=== PATIENT | female | born 1940 | race Caucasian/White ===

== ENCOUNTER 2017-12-17 19:23 | Observation (INO) | payer OTHER ==
[~2017-12-17] VITALS: Ht 152.4 cm; Wt 106.6 kg
[~2017-12-17 19:23] MED LIST: COLACE100 MG PO; FLEXERIL PO; FLONASE 0.05%50 MCG NS; JANUVIA100 MG PO; LASIX 40 MG TAB40 M1 PO; NITROSTAT0.4 MG SL; POTASSIUM20 PO; PRINIVIL10 MG PO; SYNTHROID100 MCG PO; ULTRAM 50MG TAB50 MG PO; ZEMPLAR2 MCG PO
[2017-12-17 19:29] VITALS: BP 146/90
[2017-12-17] MEDS ORDERED: SYNTHROID88 MCG PO (19:38)
[2017-12-17] MEDS ORDERED: LOPRESSOR25 PO (19:38)
[2017-12-17] MEDS ORDERED: IMDUR 60 MG TAB60 M1 PO (19:39)
[2017-12-17] MEDS ORDERED: ALLOPURINOL 10100 M1 PO (19:39)
[2017-12-17] MEDS ORDERED: GABAPENTIN 100100 MG PO (19:39)
[2017-12-17] MEDS ORDERED: CLOBETASOL EMOL15 GM TOP (19:41)
[2017-12-17] MEDS ORDERED: BETAMETHASONE D15 G3 TOP (19:41)
[2017-12-17] MEDS ORDERED: ZANAFLEX4 MG PO (19:41)
[2017-12-17] MEDS ORDERED: ACID REDUCER20 MG PO (19:42)
[2017-12-17] MEDS ORDERED: LEVEMIR SUBQ (19:43)
[2017-12-17] MEDS ORDERED: NOVOLOG100 UNIT/1 SUBQ (19:43)
[2017-12-17 20:10] LABS: ABSOLUTE BASOPHILS 0.1 thou/uL (0.0-0.2); ABSOLUTE EOSINOPHILS 0.3 thou/uL (0.0-0.7); ABSOLUTE LYMPHOCYTES 2.6 thou/uL (0.8-5.3); ABSOLUTE MONOCYTES 0.6 thou/uL (0.0-1.2); ABSOLUTE NEUTROPHILS 4.4 thou/uL (1.6-8.1); HEMATOCRIT 40.5 % (37.0-47.0); HEMOGLOBIN 13.5 gm/dL (12.0-15.0); LYMPHOCYTES 32.2 %; MCH 32.7 pg (26.0-34.0); MCHC 33.3 g/dL (28.0-37.0); MCV 98.2 fL (80.0-100.0); MPV 8.3 fl. (7.2-11.1); NUCLEATED RBCS 0 /100WBC; PLATELET COUNT* 193 thou/uL (150-400); POLYS 54.8 %; RBC 4.12 mil/uL (4.20-5.00); RDW-CV 14.5 % (10.5-14.5); WBC 8.1 thou/uL (4.0-11.0)
[2017-12-17 20:18] LABS: ANION GAP 10 mmol/L (7-16); BUN 23 mg/dL (7-18); CALCIUM 8.9 mg/dL (8.5-10.1); CHLORIDE 102 mmol/L (98-107); CO2 28 mmol/L (21-32); CREATININE 1.3 mg/dL (0.6-1.3); GLUCOSE 141 mg/dL (70-99); POTASSIUM 3.4 mmol/L (3.5-5.1); SODIUM 140 mmol/L (136-145)
[2017-12-17 20:19] LABS: APTT 28.4 Seconds (25.0-31.3); PROTIME 9.9 Seconds (9.20-11.50)
[2017-12-17 20:25] LABS: ALBUMIN 2.8 g/dL (3.4-5.0); ALKALINE PHOSPHATASE 84 U/L (46-116); SGOT 23 U/L (15-37); SGPT 22 U/L (30-65); TOTAL BILIRUBIN 0.4 mg/dL (<0.1-1.0); TOTAL PROTEIN 7.6 g/dL (6.4-8.2); TROPONIN-I LEVEL <0.06 ng/mL (<0.06)
[2017-12-17 21:35] LABS: URINE BILIRUBIN NEGATIVE (Negative); URINE BLOOD 2+ (Negative); URINE COLOR YELLOW; URINE GLUCOSE-RANDOM NEGATIVE (Negative); URINE KETONES NEGATIVE (Negative); URINE LEUKOCYTES-REFLEX 3+ (Negative); URINE NITRITE-REFLEX NEGATIVE (Negative); URINE PROTEIN 1+ (Negative); URINE SPECIFIC GRAVITY <= 1.005 (1.005-1.030); URINE UROBILINOGEN 0.2 E.U./dl (0.2-1.0)
[2017-12-17 21:37] VITALS: BP 151/89
[2017-12-17 21:41] LABS: MUCUS None Seen strn/LPF (None Seen); SQUAMOUS 4-10 Moderate /LPF (0-3)
[2017-12-17 21:42] LABS: CASTS None Seen /LPF (None Seen); URINE WBC-REFLEX >25 Many /HPF (0-5)
[2017-12-17 21:43] LABS: WBC CLUMPS Few (None Seen)
[2017-12-17 21:45] VITALS: BP 149/71
[2017-12-17 21:45] LABS: CRYSTALS None Seen /LPF (None Seen); URINE RBC 3-10 Few /HPF (0-2)
[2017-12-18] VITALS (8 sets, daily range): BP systolic 107–139; BP diastolic 51–79
--- NOTE | 2017-12-18 00:28 | NUR ---
ASSUMED PT CARE AT 1930, PT IS A&OX4, ADMISSION ASSESSMENT COMPLETED CHARTED, ON RA, TRACING NSR ON THE MONITOR, IVF INFUSING PER MAR. PT IS NPO AT THIS TIME PENDING CARDIOLOGY CONSULT. PT IS UP WITH ONE TO THE BSC, BED IN LOW POSITION, CALL LIGHT IN REACH, BED ALARM ON, YELLOW ARM BAND AND SOCKS IN PLACE. HOURLY ROUNDING COMPLETED FOR PT SAFETY.
[2017-12-18] MEDS ORDERED: ASPIR 8181 MG PO (09:46)
--- NOTE | 2017-12-18 10:45 | EKG ---
[place] [address] ELECTROCARDIOGRAM REPORT Name: DIONNA LEDESMA Room: [address] M.R.#: [id number] Admission: 12/17/17 Attend Phys: Fox Saldana Discharge: Date of : 44 Report #: [id number] THIS REPORT FOR: //name// [facility] ED Test Date: 2017-12-17 Test Time: 19:33:29 Pat Name: DIONNA LEDESMA Department: Room: [facility] Gender: F Fryline Attendant: ABISAI Lynn : 1940 Requested By: Karen Richard Order Number: [id number] MD: Harry Jacobs Measurements Intervals [place] Rate: 75 P: 8 MD: 173 QRS: -47 QRSD: 147 T: -10 QT: 435 QTc: 486 Interpretive Statements Sinus rhythm Right bundle branch block LVH with IVCD and secondary repol abnrm left anterior fasicular block Compared to ECG 08/28/2011 08:55:02 Right bundle-branch block now present Left ventricular hypertrophy now present Electronically Signed On 12-18-2017 10:45:04 CDT by Harry Jacobs [email or web address] <ELECTRONICALLY SIGNED> By: Harry Jacobs MD, FACC 12/18/17 1045 32 32 Harry Jacobs MD, FACC /EPI
--- NOTE | 2017-12-18 13:51 | 2DMMODE ---
[facility] [address] [place] [address] 2 D/M-MODE ECHOCARDIOGRAM Name: DIONNA LEDESMA Room: [address] Radha Gastelum#: [id number] Admission: 12/17/17 Attend Phys: Ron Crowe Discharge: Date of : 44 Date of Service: 12/18/17 1351 Report #: [id number] THIS REPORT FOR: //name// APPROVED REPORT Study performed: 12/18/2017 10:21:51 EXAM: Comprehensive 2D, Doppler, and color-flow Echocardiogram Patient Location: In-Patient Room #: 201 Status: routine BSA: 2.01 HR: 65 bpm BP: 123/63 mmHg Rhythm: NSR Other Information Study Quality: Good Indications CAD neck pain 2D Dimensions LVEF(%): 78.40 (>50%) IVSd: 10.36 (7-11mm) LVOT Diam: 19.98 (18-24mm) LVDd: 40.77 mm PWd: 9.39 (7-11mm) Ascending Ao: 29.89 (22-36mm) LVDs: 21.79 (25-40mm) Aortic Root: 32.08 mm Garner's LVEF: 78.40 % Volumes Left Atrial Volume (Systole) LA ESV Index: 13.60 mL/m2 Aortic Valve AoV Peak Catalino.: 1.49 m/s AO Peak Gr.: 8.89 mmHg LVOT Max P.56 mmHg AO Mean Gr.: 4.78 mmHg LVOT Mean P.86 mmHg LVOT Max V: 1.28 m/s AO V2 VTI: 29.12 cm LVOT Mean V: 0.76 m/s DAISHA (VTI): 3.11 cm2 LVOT V1 VTI: 28.91 [place] [address] 2 D/M-MODE ECHOCARDIOGRAM Name: DIONNA LEDESMA Room: [address] Nirav#: [id number] Admission: 12/17/17 Attend Phys: Ron Crowe Discharge: Date of : 44 Date of Service: 12/18/17 1351 Report #: [id number] E/A Ratio: 0.75 MV Decel. Time: 254.85 ms MV E Max Catalino.: 0.64 m/s MV PHT: 73.91 ms MVA (PHT): 2.98 cm2 TDI E/Lateral E': 6.40 E/Medial E': 6.40 Medial E' Catalino.: 0.10 m/s Lateral E' Catalino.: 0.10 m/s Pulmonary Valve PV Peak Catalino.: 0.98 m/s PV Peak Gr.: 3.82 mmHg Tricuspid Valve TR Peak Gr.: 26.94 mmHg RVSP: 31.00 mmHg Left Ventricle The left ventricle is normal size. There is normal LV segmental wall motion. Mild to moderate concentric left ventricular hypertrophy. Left ventricular systolic function is normal. The left ventricular ejection fraction is within the normal range. LVEF is 55-60%. Grade I - abnormal relaxation pattern. Right Ventricle The right ventricle is normal size. The right ventricular systolic function is normal. Atria The left atrium size is normal. The right atrium size is normal. Aortic Valve The aortic valve is normal in structure. No aortic regurgitation is present. There is no aortic valvular stenosis. Mitral Valve The mitral valve is normal in structure. Trace mitral regurgitation. No evidence of mitral valve stenosis. Tricuspid Valve The tricuspid valve is normal in structure. Mild tricuspid regurgitation. The RVSP is 30-35 mmHg. Pulmonic Valve The pulmonary valve is normal in structure. [place] [address] 2 D/M-MODE ECHOCARDIOGRAM Name: DIONNA LEDESMA Fox Room: [address] M.RPrince#: [id number] Admission: 12/17/17 Attend Phys: Ron Crowe Discharge: Date of : 44 Date of Service: 12/18/17 1351 Report #: [id number] valvular regurgitation. Great Vessels The aortic root is normal in size. IVC is normal in size and collapses with >50% inspiration Pericardium There is no pericardial effusion. <Conclusion> LVEF is 55-60%. Grade I - abnormal relaxation pattern. There is normal LV segmental wall motion. There is no aortic valvular stenosis. No aortic regurgitation is present. Mild tricuspid regurgitation. The RVSP is 30-35 mmHg. Mild to moderate concentric left ventricular hypertrophy. <ELECTRONICALLY SIGNED> By: Justus Pagan MD, FACC 12/18/17 1351 1351 135 Justus Pagan MD, FACC /INF
--- NOTE | 2017-12-18 14:31 | NUR ---
ASSUMED PT CARE AT 0700 PT IS ALERT AND ORIENTED X 4 PT IS UP WITH ASSIST X 1 WITH CANE TO BEDSIDE COMMODE PT IS A FALL RISK BED ALARM IS ON, PT IS NPO FOR STRESS TEST PT TAKES BETA BLOCKERS AND NITRATES ASKED PT AND SHE HAS NOT TAKEN EITHER SINCE SUNDAY NIGHT PT IS ABLE TO HAVE STRESS TEST TODAY, PT IS SR ON THE MONITOR PT HAS FLUIDS RUNNING, PT CAN DISCHARGE ONCE CLEARED BY CARDIOLOGY, WILL CONTINUE TO MONITOR
[2017-12-19 03:55] VITALS: BP 132/60
--- NOTE | 2017-12-19 05:24 | NUR ---
ASSUMED CARE OF PT AT 1900 ALERT AND ORIENTED X4 VS AND ASSESSMENT STABLE. NSR ON THE MONITOR. PT DENIED PAIN AND SLEPT THROUGH THE NIGHT. WILL CONTINUE PLAN OF CARE.
[2017-12-19 08:15] VITALS: BP 123/58
[2017-12-19 12:00] VITALS: BP 130/69
--- NOTE | 2017-12-19 12:31 | CARDNUC ---
[place] [address] CARDIAC NUCLEAR IMAGING REPORT Name: DIONNA LEDESMA Room: [address] Nirav#: [id number] Admission: 12/17/17 Attend Phys: Ron Crowe Discharge: Date of : 44 Date of Service: 12/19/17 1231 Report #: [id number] THIS REPORT FOR: //name// APPROVED REPORT Study performed: 12/18/2017 09:55:00 Exam: Nuclear Stress Test Indication: Chest pain, neck pain Patient Location: In-Patient Room #: 201 Stress Tech: Syeda Fontana Stress Nurse: Erin Rodríguez RN Ht: 5 ft 0 in Wt: 238 lbs BSA: 2.01 m2 BMI: 46.47 Medical History Medical History: CAD s/p MD, Diabetes, HTN Medications: metoprolol, asa, furosemide, KCL, isosorbide Allergies: penicillins, metformin Cardiac Risk Factors: Age, DM, FHX of CAD, HTN Previous Cardiac Procedures: Myocardial infarction Exercise History: Sedentary Meds Held (24 hrs): metoprolol, isosorbide Stress Test Details Stress Test: Pharmacologic stress testing performed using 0.4 mg of regadenoson per 5 mL given IV over 10 seconds. Reason for pharmacologic stress test: physical limitation. HR Resting HR: 71 bpm Max Heart Rate (APMHR): 145 bpm Max HR Achieved: 90 bpm Target HR (85% APMHR): 123 bpm % of APMHR: 62 Recovery HR: 83 bpm HR response to stress: Normal HR response to stress BP Resting BP: 120/74 mmHg Max BP: 121/61 mmHg BP response to stress: Normal blood pressure response [place] [address] CARDIAC NUCLEAR IMAGING REPORT Name: DIONNA LEDESMA Room: [address] Radha Gastelum#: [id number] Admission: 12/17/17 Attend Phys: Ron Crowe Discharge: Date of : 44 Date of Service: 12/19/17 1231 Report #: [id number] Resting ECG: Sinus Rhythm rbbb Stress ECG: Sinus Rhythm Recovery ECG: nsr rbbb Clinical Reason for Termination: Completed protocol Stress Symptoms: None Exercise duration: 0 min sec Exercise capacity: 1.0 METs Stress ECG Conclusion nondiagnostic NM EXAM: Myocardial Perfusion REST/STRESS Imaging Protocol: Stress Tc-99m/Rest Tc-99m 2 days Pharmacologic Stress Pharmacologic stress test was performed by injecting Regadenoson 0.4 mg IV push followed by the intravenous injection of 37.0 mCi of Tc-99m Sestamibi. Time of stress injection: 1335 Date: 12/18/2017 Time of stress imagin Date: 12/18/2017 Administration Route: IV Administration Site: Left Arm Heart Rate at time of stress injection: 90 bpm. Gated Stress SPECT was performed 40 minutes after stress injection. The images were gated to evaluate regional wall motion and calculate left ventricular ejection fraction. Study Quality Study: Fair Artifact: Mild Breast artifact Lung Uptake: Normal Study Data At rest, the left ventricular ejection fraction was 75%.. Post stress, the left ventricular ejection was 82%.. SSS: 10 SRS: 7 SDS: 3 TID = 0.65. Perfusion Normal perfusion on both the stress and rest images. Images were reviewed [place] [address] CARDIAC NUCLEAR IMAGING REPORT Name: DIONNA LEDESMA Room: [address]#: [id number] Admission: 12/17/17 Attend Phys: Ron Crowe Discharge: Date of : 44 Date of Service: 12/19/17 1231 Report #: [id number] Wall Motion normal Nuclear Conclusion ECG Findings: non-diagnostic Clinical Findings: negative for ischemia Nuclear Findings: negative for ischemia Exercise Capacity: not assessed Left Ventricular Function: normal Risk Study: low negative perfusion nuclear stress test <Conclusion> nondiagnostic <ELECTRONICALLY SIGNED> By: Justus Pagan MD, [facility] 12/19/17 1231 1231 1231 Justus Pagan MD, FACC /INF
[2018-05-10] MEDS ORDERED: NORCO 5-325 TA1 EACH PO (09:43)
== END 2017-12-19 13:42 | disposition home or self-care (01) ==
LOC: M.ERS 19:23 → M.2W 20:44 → M.TBA-ER 20:44 → M.2W 20:44
PROVIDERS: Physician Assistant; ADMIT Internal Medicine
DX: M54.2 Cervicalgia (principal); E11.9 Type 2 diabetes mellitus without complications; I25.10 Atherosclerotic heart disease of native coronary artery without angina pectoris; M19.90 Unspecified osteoarthritis, unspecified site; I10 Essential (primary) hypertension; E03.9 Hypothyroidism, unspecified; K21.9 Gastro-esophageal reflux disease without esophagitis; I25.2 Old myocardial infarction; E78.4 Other hyperlipidemia; E66.9 Obesity, unspecified; Z79.4 Long term (current) use of insulin; Z90.710 Acquired absence of both cervix and uterus; Z95.5 Presence of coronary angioplasty implant and graft; Z79.899 Other long term (current) drug therapy

== ENCOUNTER 2018-03-23 15:40 | Inpatient (IN) | payer OTHER ==
[~2018-03-23] VITALS: Ht 152.4 cm; Wt 103.0 kg
[~2018-03-23 15:40] MED LIST changes: +ACID REDUCER20 MG PO; +ALLOPURINOL 10100 M1 PO; +ASPIR 8181 MG PO; +BETAMETHASONE D15 G3 TOP; +CLOBETASOL EMOL15 GM TOP; +GABAPENTIN 100100 MG PO; +IMDUR 60 MG TAB60 M1 PO; +LEVEMIR SUBQ; +LOPRESSOR25 PO; +NOVOLOG100 UNIT/1 SUBQ; +SYNTHROID88 MCG PO; +ZANAFLEX4 MG PO
[2018-03-23 15:47] VITALS: BP 130/67
[2018-03-23] MEDS ORDERED: NEURONTIN 300300 M1 PO (16:02)
[2018-03-23] MEDS ORDERED: DEXILANT60 MG PO (16:03)
[2018-03-23 16:15] LABS: ABSOLUTE BASOPHILS 0.1 thou/uL (0.0-0.2); ABSOLUTE EOSINOPHILS 0.3 thou/uL (0.0-0.7); ABSOLUTE MONOCYTES 0.6 thou/uL (0.0-1.2); ABSOLUTE NEUTROPHILS 6.7 thou/uL (1.6-8.1); BASOPHILS 0.8 %; EOSINOPHILS 2.8 %; HEMATOCRIT 42.5 % (37.0-47.0); MCH 32.6 pg (26.0-34.0); MCHC 33.1 g/dL (28.0-37.0); MCV 98.7 fL (80.0-100.0); MONOCYTES 6.4 %; MPV 8.3 fl. (7.2-11.1); NUCLEATED RBCS 0 /100WBC; PLATELET COUNT* 202 thou/uL (150-400); RDW-CV 15.1 % (10.5-14.5); WBC 9.7 thou/uL (4.0-11.0)
[2018-03-23 16:20] LABS: CALCIUM 9.1 mg/dL (8.5-10.1); CREATININE 1.5 mg/dL (0.6-1.3); POTASSIUM 3.2 mmol/L (3.5-5.1)
[2018-03-23 16:24] LABS: ALBUMIN 3.1 g/dL (3.4-5.0); TOTAL BILIRUBIN 0.5 mg/dL (<0.1-1.0)
[2018-03-23 16:39] LABS: URINE BILIRUBIN NEGATIVE (Negative); URINE BLOOD TRACE (Negative); URINE CLARITY CLEAR; URINE COLOR YELLOW; URINE GLUCOSE-RANDOM NEGATIVE (Negative); URINE KETONES NEGATIVE (Negative); URINE NITRITE-REFLEX NEGATIVE (Negative); URINE PROTEIN NEGATIVE (Negative); URINE SPECIFIC GRAVITY <= 1.005 (1.005-1.030); URINE UROBILINOGEN 0.2 E.U./dl (0.2-1.0)
[2018-03-23 16:53] LABS: URINE LEUKOCYTES-REFLEX 2+ (Negative)
[2018-03-23 17:03] LABS: SQUAMOUS 4-10 Moderate /LPF (0-3); URINE WBC-REFLEX >25 Many /HPF (0-5)
[2018-03-23 17:04] LABS: BACTERIA-REFLEX 1-9 Few /HPF (None Seen); CASTS None Seen /LPF (None Seen); CRYSTALS None Seen /LPF (None Seen); MUCUS 0-3 Light strn/LPF (None Seen); URINE RBC 3-10 Few /HPF (0-2)
[2018-03-23 19:00] VITALS: BP 141/78
[2018-03-23 23:00] VITALS: BP 128/68
[2018-03-24 00:30] VITALS: BP 120/61
--- NOTE | 2018-03-24 02:53 | NUR ---
ARRIVED FROM PACU ALERT AND ORIENTED WITH FAMILY AT BEDSIDE. ORIENTED TO ROOM AND BED CONTROLS. ASSESSMENT CHARTED. DENIED NEED FOR PAIN MEDICATIONS. IVF INFUSING WITHOUT DIFFICULTY. O2 ON AT 2L/NC. CALL LIGHT WITHIN REACH. DENIED NEED FOR NAUSEA MEDICATION AT THIS TIME.
[2018-03-24 04:22] LABS: HEMATOCRIT 39.1 % (37.0-47.0); HEMOGLOBIN 12.8 gm/dL (12.0-15.0); MCH 32.4 pg (26.0-34.0); MCHC 32.6 g/dL (28.0-37.0); MCV 99.4 fL (80.0-100.0); MPV 8.6 fl. (7.2-11.1); NUCLEATED RBCS 0 /100WBC; PLATELET COUNT* 160 thou/uL (150-400); RBC 3.94 mil/uL (4.20-5.00); RDW-CV 14.7 % (10.5-14.5); WBC 15.2 thou/uL (4.0-11.0)
[2018-03-24 04:30] VITALS: BP 91/47
[2018-03-24 05:15] LABS: ALBUMIN 2.4 g/dL (3.4-5.0); CALCIUM 8.1 mg/dL (8.5-10.1); CREATININE 1.7 mg/dL (0.6-1.3); MAGNESIUM 1.7 mg/dL (1.8-2.4); POTASSIUM 3.9 mmol/L (3.5-5.1); TOTAL BILIRUBIN 0.6 mg/dL (<0.1-1.0); TOTAL PROTEIN 5.9 g/dL (6.4-8.2)
[2018-03-24 06:00] VITALS: BP 91/47
--- NOTE | 2018-03-24 06:22 | NUR ---
UP WITH 1-2 ASSIST TO BEDSIDE COMMODE. VOIDED X2 WITHOUT DIFFICULTY. URINE CLOUDY YELLOW IN COLOR. DENIED NEED FOR PAIN MEDICATION. ZOFRAN GIVEN X1 AND HELPFUL. ON O2 AT 2L/NC WITH CONTINUEOUS PULSE OX ON AND O2 SATS IN 90'S. HAS IV ANTIBIODICS ORDERED. CALL LIGHT WTIHIN REACH.
[2018-03-24 06:45] LABS: ABSOLUTE LYMPHOCYTES 1.5 thou/uL (0.8-5.3); ABSOLUTE MONOCYTES 0.8 thou/uL (0.0-1.2); ABSOLUTE NEUTROPHILS 12.9 thou/uL (1.6-8.1)
[2018-03-24 08:18] VITALS: BP 104/83
--- NOTE | 2018-03-24 11:46 | OP ---
[facility] [address] [place] [address] OPERATIVE REPORT Name: DIONNA LEDESMA Room: [address] IN [facility]#: [id number] Admission: 03/23/18 Attend Phys: Adrian Herrera, Discharge: Date of : 44 Report #: [id number] THIS REPORT FOR: //name// CC: Jose Herrera DATE OF SERVICE: 03/23/2018 INDICATIONS FOR PROCEDURE: The patient is a 77-year-old female who was admitted to the Emergency Department with right-sided flank pain associated with fever, chills, nausea and vomiting. Evaluation in the Emergency Department revealed evidence of urinary tract infection associated with a large staghorn calculus in the right kidney causing obstruction at the right ureteropelvic junction. After receiving IV antibiotics and discussing all risks and benefits of therapeutic options, she presents for cystoscopy with right retrograde pyelogram and right stent placement to relieve her ureteral obstruction. PREOPERATIVE DIAGNOSES: 1. Right pyelonephritis. 2. Right ureteral obstruction secondary to staghorn calculus. PROCEDURES PERFORMED: Cystoscopy, right retrograde pyelogram, right double-J stent placement. SURGEON: Harry Link MD ANESTHESIA: General. COMPLICATIONS: None. ESTIMATED BLOOD LOSS: None. DESCRIPTION OF PROCEDURE: The patient was consented for the above procedure, given broad-spectrum IV antibiotics preoperatively. She was given general anesthetic, placed in a dorsal lithotomy position. She was prepped and draped in a sterile fashion over the genitalia. The staghorn calculus was easily seen on fluoroscopy. Cystoscopy was performed with 21-South African sheath and the 30-degree lens, which revealed no evidence of stones, ulcerations or tumors within the bladder itself. 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 Ureteral orifices were identified. She did have a grade 2 cystocele. A right retrograde pyelogram was performed with an open-ended 5-South African Pollack catheter, which revealed a normal ureter up to the level of the ureteropelvic junction where this large stone was identified. Contrast did get by the stone and then, she had a dilated renal pelvis above that. Based on that, a 0.35 floppy-tipped guidewire was passed up the right ureter and under fluoroscopic guidance, [place] [address] OPERATIVE REPORT Name: DIONNA LEDESMA Room: [address] IN [facility]#: [id number] Admission: 03/23/18 Attend Phys: Adrian Herrera, Discharge: Date of : 44 Report #: [id number] renal pelvis, a marked efflux of urine drained upon passing the wire. A 4.8 x 26 double-J stent was then passed over the wire with a good curl noted in the renal pelvis and in the bladder after removing the wire. This was confirmed with fluoroscopy and cystoscopy. Next, the bladder was drained, the scope was removed. Uro-Jet was placed per urethra for local anesthesia. The patient was awakened and sent to recovery room where she remained in stable condition. We will leave the stent in place, have her complete her full course of antibiotics and then formal stone therapy will be necessary. This will likely entail a right percutaneous nephrolithotomy due to the size of the stone. <ELECTRONICALLY SIGNED> By: Harry Link MD 03/24/18 1146 04 2035Davitimmy Link MD /nt
--- NOTE | 2018-03-24 11:52 | EKG ---
[place] [address] ELECTROCARDIOGRAM REPORT Name: MONOHECTORDIONNA Room: [address] IN [facility].#: [id number] Admission: 03/23/18 Attend Phys: Adrian Herrera, Discharge: Date of : 44 Report #: [id number] THIS REPORT FOR: //name// [facility] ED Test Date: 2018-03-23 Test Time: 16:10:35 Pat Name: DIONNA LEDESMA Department: Room: Gender: F Purchasing Specialist: [place] : 1940 Requested By: Radha Castro Order Number: [id number] MD: Justus Pagan Measurements Intervals [place] Rate: 60 P: -3 SC: 187 QRS: -36 QRSD: 150 T: -22 QT: 470 QTc: 470 Interpretive Statements Sinus rhythm Right bundle branch block Left ventricular hypertrophy Lateral infarct, recent Compared to ECG 12/17/2017 19:33:29 Myocardial infarct finding now present Intraventricular conduction delay no longer present Early repolarization no longer present Electronically Signed On 03-24-2018 11:52:40 CDT by Justus Pagan [email or web address] <ELECTRONICALLY SIGNED> By: Justus Pagan MD, FACC 03/24/18 1152 1610 1610 Justus Pagan MD, FACC /EPI
[2018-03-24 16:00] VITALS: BP 111/64
--- NOTE | 2018-03-24 17:30 | NUR ---
PATIENT ALERT AND ORIENTED, PLEASANT, WITH PERIODS OF CONFUSION. VITAL SIGNS STABLE ON 2L O2 NASAL CANULA. AFEBRILE. PERRLA. IV PATENT WITH FLUIDS INFUSING. DENIES PAIN AND NAUSEA. SCD'S IN PLACE. FALL PRECAUTIONS IN PLACE WITH BED ALARM ON. HOURLY ROUNDS MAINTAINED THROUGHOUT THE SHIFT. CALL LIGHT WITHIN REACH. NURSING WILL CONTINUE TO MONITOR.
[2018-03-24 20:00] VITALS: BP 135/92
--- NOTE | 2018-03-24 23:32 | CON ---
[address] [address] CONSULTATION Name: DIONNA LEDESMA Room: [address] IN .R.#: [id number] Admission: 03/23/18 Attend Phys: Adrian Herrera, Discharge: Date of : 42 Report #: [id number] THIS REPORT FOR: //name// CC: Jose Herrera DATE OF SERVICE: 03/24/2018 CONSULTATION: Infectious Diseases. HISTORY OF PRESENT ILLNESS: The patient is a 77-year-old white female admitted to the hospital yesterday because of sudden onset of severe right flank pain associated with nausea, vomiting, fevers and chills. Workup showed obstructing staghorn calculus at the right UPJ with hydronephrosis. The patient gave no history of kidney stones in the past. She had no urinary history. She said she did have trauma to the "right colon" at age 11 and thought the pain may be related to that, although she had had pain there for many decades. The patient required urgent surgery to place a stent. Blood cultures x 2 and urine cultures were obtained. Infectious Disease consultation was requested when blood cultures x 2 grew Gram-negative rods. Urine culture unfortunately has been sent to [facility] and there are no results available yet. PAST MEDICAL HISTORY: Significant for diabetes, hypertension, coronary artery disease, fibromyalgia, gastroesophageal reflux, gout. PAST SURGICAL HISTORY: Includes hysterectomy, cholecystectomy, laminectomy. ALLERGIES: THE PATIENT HAS ALLERGIES TO METFORMIN AND PENICILLIN. ON FURTHER QUESTIONING, SHE SAYS PENICILLIN CAUSES SEVERE HIVES. SHE BELIEVES SHE HAD A SIMILAR REACTION FROM [facility]. MEDICATION RECONCILIATION: Current medications include vancomycin and Levaquin, which have been discontinued; betamethasone p.r.n. itching; doxycycline 100 mg twice a day; Lovenox 40 mg subQ daily; fentanyl 25 mcg q. 3h. p.r.n.; fluticasone 0.05% nasal spray daily; Neurontin 300 mg t.i.d.; DuoNeb 3 mL aerosol q.i.d.; isosorbide SA 60 mg daily; Synthroid 0.088 mg daily; magnesium oxide 400 mg b.i.d. p.r.n. hypomagnesemia; metoprolol 25 mg p.o. b.i.d.; morphine 2 mg push q. 3h. p.r.n. pain; ondansetron 4 mg q. 4h. p.r.n.; Protonix 40 mg IV daily; sodium, phosphorus, potassium supplements as needed. The patient has been started on aztreonam 1 g q. 8 hours. FAMILY HISTORY: Noncontributory. SOCIAL HISTORY: The patient is , lives with her . 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 She has no history of tobacco, [place] [address] CONSULTATION Name: DIONNA LEDESMA Room: [address]#: [id number] Admission: 03/23/18 Attend Phys: Adrian Herrera, Discharge: Date of : 44 Report #: [id number] REVIEW OF SYSTEMS: The patient feels much better after placement of the stent. She is no longer complaining of fevers, chills or sweats. She denies headache, sinus congestion, sore throat, trouble swallowing. The patient denies confusion, but her daughter was present, noted that her answers are often quite confused and not accurate, which is different for the patient. The patient denies cough, chest pain, or shortness of breath. She denies angina, syncope, palpitations. She did have nausea and vomiting, which resolved. No diarrhea or constipation. She had right-sided abdominal and flank pain. Extremities, no complaints. The patient was not complaining of frequency, dysuria, bloody urine, cloudy urine, stinky urine, but had the severe flank pain. PHYSICAL EXAMINATION: GENERAL: The patient appears comfortable, not in any distress. VITAL SIGNS: Show maximum measured temperature 99.5, blood pressure was 141/70 in the ER and fell down to 91/47, now is back to 104/83. SKIN: Pale without rash, lesion or exanthem. ENT: Negative. NEUROLOGIC: The patient is oriented x 4. NECK: Supple. HEART: Sounds S1, S2. Regular rate and rhythm. CHEST: Clear to anterior auscultation. ABDOMEN: Obese, soft and does not really demonstrate any tenderness at this time. EXTREMITIES: Unremarkable. GENITOURINARY: The patient does not have a Gomez catheter in. LABORATORY DATA: White count is 15.2, hemoglobin 12.8, hematocrit 39%, platelet 160,000. Electrolytes normal. BUN 20, creatinine 1.7. Liver function tests are normal. Urinalysis showed greater than 25 white cells. Urine culture is pending. Blood cultures x 2 are growing Gram-negative rods. CT scan showed a right-sided staghorn calculus displaced to the ureteropelvic junction with proximal hydronephrosis and bilateral cortical renal atrophy. IMPRESSION: Staghorn calculus with hydronephrosis and Gram-negative bacteremia. The patient should be treated for Gram-negative bacteremia. She has a history of significant penicillin allergy as well as possible cephalosporin allergy. We will use aztreonam for broad spectrum Gram-negative coverage pending results of cultures. We will use a dose of 1 g every 8 hours based on the patient's weight and creatinine. Aztreonam is rather expensive drug and if studies show that the organism is Cipro sensitive, this may be a most cost effective way of treating the patient. Unfortunately, there is too much Cipro resistance in the community now to use this empirically. I would recommend at least 3-5 days of IV antibiotics after the last positive culture before changing to oral antibiotic therapy. I will order a followup blood culture today as [place] [address] CONSULTATION Name: DIONNA LEDESMA Room: [address] ADM IN [facility].#: [id number] Admission: 03/23/18 Attend Phys: Adrian Herrera, Discharge: Date of : 44 Report #: [id number] and BMP tomorrow along with the lactate and procalcitonin. We will discontinue the vancomycin, Levaquin and doxycycline and just use the aztreonam for antibiotics now. I appreciate the opportunity of input in the care of this pleasant family. Dr. Hines will assume followup infectious disease care tomorrow. Thank you for this consultation. <ELECTRONICALLY SIGNED> By: Vinay Henderson MD 03/24/18 2332 1619 1939MD birgit Hayes
[2018-03-25 04:17] LABS: ABSOLUTE BASOPHILS 0.1 thou/uL (0.0-0.2); ABSOLUTE EOSINOPHILS 0.2 thou/uL (0.0-0.7); ABSOLUTE LYMPHOCYTES 1.2 thou/uL (0.8-5.3); ABSOLUTE NEUTROPHILS 8.9 thou/uL (1.6-8.1); BASOPHILS 0.4 %; EOSINOPHILS 1.6 %; LYMPHOCYTES 10.8 %; MCH 32.3 pg (26.0-34.0); MCHC 32.8 g/dL (28.0-37.0); MCV 98.7 fL (80.0-100.0); MONOCYTES 8.6 %; MPV 8.6 fl. (7.2-11.1); NUCLEATED RBCS 0 /100WBC; PLATELET COUNT* 131 thou/uL (150-400); POLYS 78.6 %; RBC 3.34 mil/uL (4.20-5.00); RDW-CV 14.6 % (10.5-14.5); WBC 11.4 thou/uL (4.0-11.0)
[2018-03-25 04:26] LABS: CALCIUM 8.1 mg/dL (8.5-10.1); CREATININE 1.8 mg/dL (0.6-1.3); POTASSIUM 3.6 mmol/L (3.5-5.1)
[2018-03-25 04:29] LABS: HEMOGLOBIN 10.8 gm/dL (12.0-15.0)
--- NOTE | 2018-03-25 04:56 | NUR ---
PATIENT ORIENTED X4 BUT FORGETFUL AND CONFUSED AT TIMES. DENIES PAIN OR NAUSEA. UP WITH ASSIST X1 TO BSC, VOIDING ADQUATELY. VITALS STABLE ON 2L O2 NC. WILL CONTINUE TO MONITOR.
[2018-03-25 08:30] VITALS: BP 119/60
--- NOTE | 2018-03-25 11:38 | NUR ---
Nutrition: pt screen for BMI. Wt down slightly from November at 235 lb. S/p stent w/ kidney stone, UTI. RFT's elevated, albumin low. Meds reviewed. B-178. Hx reviewed. Pt somewhat forgetful and occasionaly confused. Pt noted to be hungry and tolerating po. Appears at low nutrition risk, no recommendaitons at this time.
--- NOTE | 2018-03-25 15:00 | NUR ---
PT.DROWSY. SHE ANSWERED QUESTIONS APPROPRIATELY. SHE SAID SHE LIVES WITH HER ,DAUGHTER AND 2 GRANDSONS. THEY CAN HELP HER NEEDED. SHE DOES NOT AMBULATE. SHE HAS AN ELECTRIC WC. SHE SAID SHE HAS NO CARTILAGE LEFT IN HER KNEES AND CHRONIC BACK/LEG PAIN. SHE CAN TRANSFER TO HER WC BY HERSELF. SHE CAN BATHE AND DRESS HERSELF. HER DRIVES IF THEY GO ANYWHERE. HER DAUGHTER DOES THE COOKINGOR THEY GET TAKE OUT.,CLEANING,LAUNDRY,ETC. SHE HAS NEVER HAD HOME HEALTH. SHE IS AWARE THEY ARE WAITING FOR HER URINE CULTURES TO COME BACK. CM WILL FOLLOW.
[2018-03-25 16:27] VITALS: BP 106/53
--- NOTE | 2018-03-25 17:16 | NUR ---
ASSUMED CARES OF PT AT 0700. PT IN BED, BED IN LOW LOCKED POSITION, CALL BUTTON AND PERSONAL ITEMS IN PT REACH. PT A&O X4, HRRR PER AUSCULTATION, LCTAB, VSS ON RA, PERRLA, PT COOPERATIVE, CALM AND FRIENDLY. PT USES MOTORIZED WC TO AMBULATE, CAN STAND TO PIVOT AND TRANSFER TO COMMODE/TOILET AND BED WITH SBA/INDEPENDENT. FAMILY AT BEDSIDE ALL SHIFT. IV LFA PATENT WITH FLUIDS INFUSING, TOLERATED, NO AVR. SECOND IV IN RIGHT FA SALINE LOCKED / PATENT TO FLUSH. HOURLY ROUNDING AND ACCU CHECKS CONTINUE, NO INSULIN ORDERED. WORKING WITH PT AND OT. SKIN INTACT WITH SCATTERED BRUISING AND SCARS. PT PROGRESSING TOWARDS GOAL. WILL CONTINUE TO MONITOR PT STATUS AND PROGRESS. PT DENIES PAIN THIS SHIFT.
--- NOTE | 2018-03-25 19:02 | NUR ---
PT REMAINS STABLE, TALKATIVE, COOPERATIVE, UP SBA TO TRANSFER TO POWER . PT PROGRESSING TOWARDS GOAL, NO PAIN REPORTED THIS SHIFT. VS REMAIN STABLE, FLUIDS IN LEFT IV INFUSING, TOLERATED, NO AVR. FAMILY AT BEDSIDE THIS SHIFT. HOURLY ROUNDING COMPLETED. REPORT TO CAR BODY MECHANIC FOR CONTINUED CARES. ASSESSMENTS COMPLETED.
[2018-03-25 20:45] VITALS: BP 101/53
[2018-03-26] VITALS: BP 105/60
[2018-03-26 03:54] LABS: HEMATOCRIT 32.8 % (37.0-47.0); HEMOGLOBIN 10.9 gm/dL (12.0-15.0); MCH 32.6 pg (26.0-34.0); MCHC 33.1 g/dL (28.0-37.0); MCV 98.5 fL (80.0-100.0); MPV 9.1 fl. (7.2-11.1); RBC 3.33 mil/uL (4.20-5.00); RDW-CV 14.9 % (10.5-14.5); WBC 8.2 thou/uL (4.0-11.0)
[2018-03-26 04:18] LABS: ALBUMIN 2.1 g/dL (3.4-5.0); CALCIUM 7.8 mg/dL (8.5-10.1); CREATININE 1.8 mg/dL (0.6-1.3); POTASSIUM 3.8 mmol/L (3.5-5.1); TOTAL BILIRUBIN 0.4 mg/dL (<0.1-1.0); TOTAL PROTEIN 5.6 g/dL (6.4-8.2)
[2018-03-26 08:29] VITALS: BP 95/49
--- NOTE | 2018-03-26 08:43 | NUR ---
PATIENT HAS SLEPT WELL THROUGHOUT THE NIGHT WITHOUT ANY ISSUES. VSS ON RA. NO C/O PAIN DURING THE SHIFT. VSS ON RA. PATIENT IS UP WITH SBA TO WHEELCHAIR TO THE BATHROOM. IV IN LEFT FORERAM-NS @ 75ML/HR. IV ABT GIVEN WITHOUT ANY ADVERSE SIDE EFFECTS. IV RIGHT FOREARM-SL. PATIENT INSTRUCTED TO USE CALL LIGHT WHEN NEEDING ASSISTANCE. HOURLY ROUNDS MADE. WILL CONTINUE WITH PLAN OF CARE AND NURSING TO MONITOR.
[2018-03-26 16:08] VITALS: BP 106/46
[2018-03-26 21:35] VITALS: BP 107/57
--- NOTE | 2018-03-27 03:58 | NUR ---
ASSUMED PATIENT CARE AT APPROXIMATELY 0000. REPORT GIVEN FROM NIGHT NURSE. PATIENT SLEEPING QUIETLY. VSS. AGREE WITH ASSESSMENT CHARTED. NURSING TO CONTINUE MONITORING.
[2018-03-27 04:48] LABS: HEMATOCRIT 32.1 % (37.0-47.0); HEMOGLOBIN 10.6 gm/dL (12.0-15.0); MCH 32.8 pg (26.0-34.0); MCV 99.5 fL (80.0-100.0); MPV 9.3 fl. (7.2-11.1); RBC 3.22 mil/uL (4.20-5.00); RDW-CV 15.1 % (10.5-14.5); WBC 6.6 thou/uL (4.0-11.0)
[2018-03-27 04:50] LABS: CALCIUM 8.2 mg/dL (8.5-10.1); CREATININE 1.6 mg/dL (0.6-1.3)
--- NOTE | 2018-03-27 08:02 | NUR ---
PATIENT HAS SLEPT WELL THROUGHOUT THE NIGHT. VSS ON RA. NO C/O PAIN. PATIENT IS UP WITH SBA TO HER W/C AND THE BATHROOM. IV IN LEFT FOREARM-NS @ 75ML/HR. PATIENT INSTRUCTED TO USE CALL LIGHT WHEN NEEDING ASSISTANCE. HOURLY ROUNDS MADE. WILL CONTINUE WITH PLAN OF CARE AND NURSING TO MONITOR.
[2018-03-27 09:00] VITALS: BP 101/42
--- NOTE | 2018-03-27 16:40 | NUR ---
ASSUMED CARE OF PATIENT AFTER MORNING REPORT. ALERT AND ORIENTED X4. ASSESSMENT COMPLETED AND CHARTED. VSS ON ROOM AIR. ANTIBIOTIC INFUSED ORDERED. PATIENT HAS HAD NO COMPLAINTS OF PAIN TIS SHIFT. PATIENT IS TRANSFERRING WELL FROM BED TO WHEELCHAIR TO USE THE BATHROOM. RESTING COMFORTABLY IN BED AT THIS TIME. HOURLY ROUNDS MAINTAINED, CALL LIGHT WITHIN REACH, NURSING WILL CONTINUE TO MONITOR.
[2018-03-27 17:24] VITALS: BP 112/57
[2018-03-27 21:00] VITALS: BP 133/56
[2018-03-27] MEDS ORDERED: DOXYCYCLINE 10100 MG PO (23:51)
[2018-03-28 00:46] VITALS: BP 142/70
[2018-03-28 04:37] LABS: CREATININE 1.4 mg/dL (0.6-1.3); POTASSIUM 4.3 mmol/L (3.5-5.1)
--- NOTE | 2018-03-28 04:49 | NUR ---
PATIENT REMAINS ALERT AND ORIENTED X4 THROUGHOUT SHIFT. VITAL SIGNS STABLE ON ROOM AIR. IV PATENT IN THE LEFT FOREARM SALINE LOCKED. MAINTAINED AND TOLERATED CARB CONTROL DIET. TRANSFERS WITH STANDBY ASSIST TO THE RESTROOM. MEDICATIONS GIVEN PER ORDERS. REPOSITIONING SELF IN BED. RESTING COMFORTABLY THROUGHOUT NIGHT. DENIES PAIN OR NAUSEA. HOURLY ROUNDING COMPLETE. CALL LIGHT WITHIN REACH. NURSING WILL CONTINUE TO MONITOR.
[2018-03-28 09:18] VITALS: BP 110/72; BP 130/67
[2018-03-28 10:50] VITALS: BP 130/67
[2018-03-28 11:23] VITALS: BP 130/67
--- NOTE | 2018-03-28 12:37 | NUR ---
ASSUMED CARE OF PATIENT AFTER MORNING REPORT. ALERT AND ORIENTED X4. ASSESSMENT COMPLETED AND CHARTED. VSS ON ROOM AIR. PATIENT HAS HAD NO COMPLAINTS OF PAIN, NAUSEA OR SOA THIS SHIFT. ANTIBIOTICS ADMINISTERED ORDERED. PATIENT DISCHARGED AT 1230, ALL PERSONAL BELONGINGS, PRESCRIPTION AND DISCHARGE INFORMATION SSENT WITH PATIENT UPON DISCHARGE.
--- NOTE | 2018-03-31 10:45 | CON ---
[address] [address] CONSULTATION Name: DIONNA LEDESMA Room: [address]R.#: [id number] Admission: 03/23/18 Attend Phys: Adrian Herrera, Discharge: 03/28/18 Date of : 44 Report #: [id number] THIS REPORT FOR: //name// CC: Jose Herrera DATE OF SERVICE: 03/25/2018 REQUESTING PHYSICIAN: Adrian Herrera MD. REASON FOR CONSULTATION: Acute kidney injury. HISTORY OF PRESENT ILLNESS: The patient is a 77-year-old female with chronic kidney disease, stage 3 due to diabetic nephropathy and hypertensive nephrosclerosis. She used to follow with Dr. Freeman in our office, but last time was seen by Dr. Freeman was in 2010. At that time, she expressed wishes just to follow for her kidney problems with her primary. So, she presents to the hospital on 03/23/2018 with complaints of right flank pain. She had some chills, nausea, vomiting and fever. She was found to have obstructive staghorn calculi in the right. Urology, Dr. Link performed a cystoscopy with right retrograde pyelogram and placement of right double-J stent. After the procedure, the patient started feeling better; no more pain, fever subsided. Her creatinine, baseline around 1.3 and it is 1.8 today that is why I was consulted. PAST MEDICAL HISTORY: 1. Chronic kidney disease, stage 3. 2. Diabetes mellitus type 2. 3. Hypertension. 4. Obesity. FAMILY HISTORY: Noncontributory. SOCIAL HISTORY: No tobacco or alcohol abuse. MEDICATIONS: Now, she is on albuterol, Protonix, Azactam 1 gram q. 8 hours, gabapentin, Imdur, Flonase, metoprolol and Lovenox. She is getting saw the patient. REVIEW OF SYSTEMS: Positive for symptoms as mentioned earlier. She denies chest pain. Denies shortness of breath. Denies having blood in stool or urine. Denies having changes in visual or hearing acuity. Denies being depressed. PHYSICAL EXAMINATION: GENERAL: She is awake, alert, oriented. VITAL SIGNS: Blood pressure now 119/60, heart rate 82, [place] [address] CONSULTATION Name: DIONNA LEDESMA Room: [address]#: [id number] Admission: 03/23/18 Attend Phys: Adrian Herrera, Discharge: 03/28/18 Date of : 44 Report #: [id number] HEENT: Pupils are round. NECK: Fatty. LUNGS: Clear. CARDIOVASCULAR: Regular rate. ABDOMEN: Soft. EXTREMITIES: Lower extremities, no edema. ASSESSMENT: A 77-year-old female admitted with pyelonephritis on the right side due to right staghorn obstructive calculi, status post placement of a stent by urologist and the patient started on antibiotics and fluids. She feels better. Hopefully, her acute kidney injury will improve fairly soon. I will continue with the fluid, continue with antibiotic. Long-term solution will probably be surgical removal of her staghorn calculi and I would defer that to Dr. Link. Thank you very much. I will follow her closely with you. <ELECTRONICALLY SIGNED> By: Paddy Lora MD 03/31/18 1045 1156 [id number] Lora MD /nt
[2018-05-10] MEDS ORDERED: NORCO 5-325 TA1 EACH PO (09:43)
== END 2018-03-28 12:30 | disposition home or self-care (01) | DRG 871 ==
LOC: M.ERS 15:40 → M.ORTHSURG 17:46 → M.TBA-ER 17:46 → M.ORTHSURG 21:30
PROVIDERS: Internal Medicine; Internal Medicine Infectious Disease; Internal Medicine Nephrology; Nurse Practitioner Family; Urology; ADMIT Family Medicine
PROC: BT1D1ZZ Fluoroscopy of Right Kidney, Ureter and Bladder using Low Osmolar Contrast (ICD-10-PCS; principal; 2018-03-23)
PROC: 0T768DZ Dilation of Right Ureter with Intraluminal Device, Via Natural or Artificial Opening Endoscopic (ICD-10-PCS; principal; 2018-03-23)
DX: A41.9 Sepsis, unspecified organism (principal); J96.91 Respiratory failure, unspecified with hypoxia; G92 Toxic encephalopathy; N17.9 Acute kidney failure, unspecified; N13.6 Pyonephrosis; J98.11 Atelectasis; Z68.41 Body mass index [BMI] 40.0-44.9, adult; N18.3 Chronic kidney disease, stage 3 (moderate); M19.90 Unspecified osteoarthritis, unspecified site; K21.9 Gastro-esophageal reflux disease without esophagitis; G31.89 Other specified degenerative diseases of nervous system; D64.9 Anemia, unspecified; I25.10 Atherosclerotic heart disease of native coronary artery without angina pectoris; M79.7 Fibromyalgia; I12.9 Hypertensive chronic kidney disease with stage 1 through stage 4 chronic kidney disease, or unspecified chronic kidney disease; E11.649 Type 2 diabetes mellitus with hypoglycemia without coma; E11.21 Type 2 diabetes mellitus with diabetic nephropathy; M10.9 Gout, unspecified; E66.01 Morbid (severe) obesity due to excess calories; I25.2 Old myocardial infarction; B96.89 Other specified bacterial agents as the cause of diseases classified elsewhere; E11.22 Type 2 diabetes mellitus with diabetic chronic kidney disease; B96.20 Unspecified Escherichia coli [E. coli] as the cause of diseases classified elsewhere; E87.6 Hypokalemia; Z96.1 Presence of intraocular lens; Z88.6 Allergy status to analgesic agent; Z88.1 Allergy status to other antibiotic agents; Z88.0 Allergy status to penicillin; Z98.42 Cataract extraction status, left eye; Z98.41 Cataract extraction status, right eye; Z90.710 Acquired absence of both cervix and uterus; Z90.49 Acquired absence of other specified parts of digestive tract; Z86.718 Personal history of other venous thrombosis and embolism; Z79.01 Long term (current) use of anticoagulants; Z79.2 Long term (current) use of antibiotics; Z79.4 Long term (current) use of insulin; Z79.899 Other long term (current) drug therapy

== ENCOUNTER → 2018-04-29 | Outpatient (CLI) | payer OTHER ==
[~2018-04-29] MED LIST changes: +DEXILANT60 MG PO; +DOXYCYCLINE 10100 MG PO; +NEURONTIN 300300 M1 PO; +NORCO 5-325 TA1 EACH PO
[2018-04-29 14:32] LABS: HEMATOCRIT 42.4 % (37.0-47.0); HEMOGLOBIN 14.3 gm/dL (12.0-15.0)
[2018-04-29 15:22] LABS: CALCIUM 8.9 mg/dL (8.5-10.1); CREATININE 1.5 mg/dL (0.6-1.3); POTASSIUM 3.4 mmol/L (3.5-5.1)
--- NOTE | 2018-04-29 15:56 | EKG ---
[place] [address] ELECTROCARDIOGRAM REPORT Name: MAX LEDESMAALEKS Braxton Room: [facility]#: [id number] Admission: 04/29/18 Attend Phys: Harry Link MD Discharge: Date of : 44 Report #: [id number] THIS REPORT FOR: //name// [facility] Test Date: 2018-04-29 Test Time: 14:51:30 Pat Name: DIONNA LEDESMA Department: Room: Gender: F Specification Consultant: : 1940 Requested By: Harry Link Order Number: [id number] Reading MD: Harry Jacobs Measurements Intervals [place] Rate: 99 P: 17 [place]: 152 QRS: -63 QRSD: 143 T: -5 QT: 401 QTc: 515 Interpretive Statements Sinus rhythm RBBB and LAFB Probable left ventricular hypertrophy Compared to ECG 03/23/2018 16:10:35 rate increased Electronically Signed On 04-29-2018 15:55:54 CDT by Harry Jacobs [email or web address] <ELECTRONICALLY SIGNED> By: Harry Jacobs MD, [facility] 04/29/18 1555 1451 145 Harry Jacobs MD, FACC /EPI
== END ==
LOC: M.LAB 14:03
PROVIDERS: Urology
DX: Z01.818 Encounter for other preprocedural examination (principal); N20.0 Calculus of kidney; I10 Essential (primary) hypertension; E11.9 Type 2 diabetes mellitus without complications; I25.10 Atherosclerotic heart disease of native coronary artery without angina pectoris; Z88.0 Allergy status to penicillin

== ENCOUNTER → 2018-05-10 | Day surgery (SDC) | payer OTHER ==
[2018-05-16 12:10] LABS: STONE CALCIUM PHOSPHATE 50 % (()); STONE COLOR Tan (()); STONE MAGNESIUM AMMON PHOS 45 % (())
--- NOTE | 2018-06-15 12:08 | OP ---
[facility] [address] [place] [address] OPERATIVE REPORT Name: DIONNA LEDSEMA Room: [facility]#: [id number] Admission: 05/10/18 Attend Phys: Harry Link MD Discharge: Date of : 44 Report #: [id number] THIS REPORT FOR: //name// CC: Jose Link DATE OF SERVICE: 05/10/2018 INDICATIONS: The patient is a 77-year-old female who required a right double-J stent placement last month due to febrile urinary tract infection associated with an obstructing right staghorn calculus. She has recovered nicely from the infection and presents for formal stone management. We discussed treatment options in detail and have elected to proceed with ureteroscopic management with laser lithotripsy due to her overall health issues and a higher surgical risk associated with a percutaneous nephrolithotomy. She understands that because we are managing the stone in this fashion, we will create multiple fragments that will require passage, she may have secondary procedures needed and elected to proceed with this procedure due to the safety associated with this procedure. PREOPERATIVE DIAGNOSIS: Right staghorn calculus. POSTOPERATIVE DIAGNOSIS: Right staghorn calculus. PROCEDURE: Cystoscopy, right ureteroscopic stone extraction with holmium laser lithotripsy with a right double-J stent placement. SURGEON: Harry Link MD. ANESTHESIA: General. COMPLICATIONS: None. ESTIMATED BLOOD LOSS: Minimal. DESCRIPTION OF PROCEDURE: The patient was consented for the above procedure. She was given broad spectrum IV antibiotics. She was given a general anesthetic, placed in a dorsal lithotomy position and prepped and draped in the usual sterile fashion over the genitalia. Cystoscopy was performed with a 21-Yakut sheath and 30-degree lens, which revealed the right double-J stent protruding from the right ureteral orifice. This was grasped with a grasping forceps and brought out to the urethral meatus. Next, a 0.035 floppy-tipped guidewire was passed up the stent and up into the right renal collecting system under fluoroscopic guidance without difficulty. The stent was removed leaving the guidewire in place. Next, an 08/13, 28 cm ureteral access sheath was passed over the wire up the ureter under fluoroscopic guidance without difficulty. Once the sheath was in place, the wire and trocar were removed[place] [address] OPERATIVE REPORT Name: DIONNA LEDESMA Room: [facility]#: [id number] Admission: 05/10/18 Attend Phys: Harry Link MD Discharge: Date of : 44 Report #: [id number] flexible ureteroscope was used to perform ureteroscopy through the sheath and up into the collecting system without difficulty. This large stone was identified, it was completely filling the renal pelvis. A 200 micron holmium laser was used to fragment the stone. This stone was very soft and fragmented readily into manageable-size pieces; however, due to the amount of debris that was created, it was always difficult to tell whether any large pieces remained behind. A thorough fragmentation was performed trying to identify any sizable fragments that could be broken up and I felt like that I was able to break up the entire stone, but as mentioned, visualization was fairly poor due to the amount of debris. This was irrigated free several times, but still visualization was difficult. After an exhaustive period of time fragmenting the stone, I elected to halt the procedure. The ureteroscope was removed. The guidewire was passed back up the sheath under fluoroscopic guidance. The sheath was removed and then a 4.8 x 26 double-J stent was passed over the wire with good curl noted in the renal pelvis and in the bladder after removing the wire. This was confirmed with fluoroscopy and cystoscopy. The bladder was drained, scope was removed. Uro-Jet was placed per urethra for local anesthesia. She was transferred to the recovery room in stable condition. We will leave the stent in for a few weeks. Repeat some imaging to see what type of stone fragments is left behind to determine if further procedures are needed. <ELECTRONICALLY SIGNED> By: Harry Lnik MD 06/15/18 1208 0919 [id number] Link MD /nt
== END | disposition home or self-care (01) ==
LOC: M.SUR 05:56
PROVIDERS: Urology
DX: N20.0 Calculus of kidney (principal); N39.0 Urinary tract infection, site not specified; I12.9 Hypertensive chronic kidney disease with stage 1 through stage 4 chronic kidney disease, or unspecified chronic kidney disease; E11.22 Type 2 diabetes mellitus with diabetic chronic kidney disease; N18.2 Chronic kidney disease, stage 2 (mild); E11.40 Type 2 diabetes mellitus with diabetic neuropathy, unspecified; I25.10 Atherosclerotic heart disease of native coronary artery without angina pectoris; I25.2 Old myocardial infarction; E03.9 Hypothyroidism, unspecified; M79.7 Fibromyalgia; M10.9 Gout, unspecified; E66.09 Other obesity due to excess calories; Z90.710 Acquired absence of both cervix and uterus; Z88.6 Allergy status to analgesic agent; Z86.718 Personal history of other venous thrombosis and embolism; Z88.8 Allergy status to other drugs, medicaments and biological substances; Z79.899 Other long term (current) drug therapy; Z88.0 Allergy status to penicillin; Z98.890 Other specified postprocedural states; Z79.01 Long term (current) use of anticoagulants; Z79.4 Long term (current) use of insulin

== ENCOUNTER → 2019-07-22 | Outpatient (CLI) | payer OTHER | LOC: M.RAD 16:00 | DX: J98.11 Atelectasis (principal); I25.2 Old myocardial infarction; I25.10 Atherosclerotic heart disease of native coronary artery without angina pectoris; I11.9 Hypertensive heart disease without heart failure; Z98.61 Coronary angioplasty status; Z88.8 Allergy status to other drugs, medicaments and biological substances ==

== ENCOUNTER 2019-10-29 10:23 | Inpatient (IN) | payer MEDICARE ==
[~2019-10-29] VITALS: Ht 152.4 cm; Wt 90.7 kg
[2019-10-29 10:24] VITALS: BP 139/58
[2019-10-29 10:58] LABS: BE -6.3 mmol/L (-2 to +3); PCO2 VENOUS 25.9 mmHg (41.0-51.0)
[2019-10-29 10:59] LABS: HEMATOCRIT 35.1 % (37.0-47.0); HEMOGLOBIN 12.1 gm/dL (12.0-15.0); MCH 33.9 pg (26.0-34.0); MCHC 34.4 g/dL (28.0-37.0); MCV 98.6 fL (80.0-100.0); NUCLEATED RBCS 0 /100WBC; PLATELET COUNT* 113 thou/uL (150-400); RBC 3.56 mil/uL (4.20-5.00); RDW-CV 14.6 % (10.5-14.5); WBC 10.8 thou/uL (4.0-11.0)
[2019-10-29 11:07] LABS: INFLUENZA A ANTIGEN Negative (Negative); INFLUENZA B ANTIGEN Negative (Negative)
[2019-10-29 11:20] LABS: CALCIUM 7.9 mg/dL (8.5-10.1); CREATININE 2.4 mg/dL (0.6-1.3); POTASSIUM 3.3 mmol/L (3.5-5.1)
[2019-10-29 11:25] LABS: ALBUMIN 2.6 g/dL (3.4-5.0); TOTAL BILIRUBIN 2.3 mg/dL (<0.1-1.0); TOTAL PROTEIN 6.5 g/dL (6.4-8.2)
[2019-10-29 11:26] LABS: URINE BLOOD 1+ (Negative); URINE CLARITY CLEAR; URINE COLOR YELLOW; URINE GLUCOSE-RANDOM NEGATIVE (Negative); URINE KETONES NEGATIVE (Negative); URINE NITRITE-REFLEX NEGATIVE (Negative); URINE PROTEIN 1+ (Negative)
[2019-10-29 11:27] LABS: ICTOTEST (BILI CONFIRMATORY) Negative (Negative); URINE BILIRUBIN 1+ (Negative); URINE LEUKOCYTES-REFLEX 3+ (Negative)
[2019-10-29 11:32] LABS: BACTERIA-REFLEX >30 Many /HPF (None Seen); COARSE GRANULAR CASTS 4-10 Moderate /LPF (None Seen); CRYSTALS None Seen /LPF (None Seen); HYALINE CASTS 4-10 Moderate /LPF (None Seen); MUCUS 0-3 Light strn/LPF (None Seen); SQUAMOUS 4-10 Moderate /LPF (0-3); URINE WBC-REFLEX >25 Many /HPF (0-5)
[2019-10-29 11:34] LABS: ABSOLUTE LYMPHOCYTES 0.1 thou/uL (0.8-5.3); ABSOLUTE MONOCYTES 0.3 thou/uL (0.0-1.2); ABSOLUTE NEUTROPHILS 10.4 thou/uL (1.6-8.1); PLATELET ESTIMATE ADEQUATE
[2019-10-29 12:53] VITALS: BP 98/53
[2019-10-29] MEDS ORDERED: ISOSORBIDE PO (13:59)
[2019-10-29] MEDS ORDERED: FUROSEMIDE 40 M40 MG PO (14:01)
[2019-10-29] MEDS ORDERED: HUMALOG100 UNIT/1 SUBQ (14:02)
[2019-10-29] MEDS ORDERED: LEVEMIR100 UNIT/1 SUBQ (14:02)
[2019-10-29] MEDS ORDERED: VITAMIN D400 UNIT PO (14:04)
[2019-10-29 14:30] VITALS: BP 91/43
--- NOTE | 2019-10-29 14:32 | EKG ---
[place] [address] ELECTROCARDIOGRAM REPORT Name: DIONNA LEDESMA Room: [address] ADM IN .R.#: [id number] Admission: 10/29/19 Attend Phys: Fox Saldana Discharge: Date of : 44 Report #: [id number] THIS REPORT FOR: //name// [facility] ED Test Date: 2019-10-29 Test Time: 10:35:19 Pat Name: DIONNA LEDESMA Department: Room: [facility] Gender: F Medical Assistant Float: : 1940 Requested By: Maximus Cedeno Order Number: [id number] MD: Harry Jacobs Measurements Intervals [place] Rate: 109 P: 11 [place]: 149 QRS: -75 QRSD: 145 T: 24 QT: 359 QTc: 484 Interpretive Statements Sinus tachycardia RBBB and LAFB Compared to ECG 04/29/2018 14:51:30 Sinus rhythm no longer present Electronically Signed On 10-29-2019 14:31:58 GLOBAL COORDINATOR by Harry Jacobs [email or web address] <ELECTRONICALLY SIGNED> By: Harry Jacobs MD, FAC 10/29/19 1431 1035 1035 Harry Jacobs MD, [facility] /EPI
[2019-10-29 16:00] VITALS: BP 92/55
[2019-10-29 20:20] VITALS: BP 93/52
[2019-10-29 23:13] LABS: ACETAMINOPHEN 3 ug/mL (10-30); DIRECT BILIRUBIN 0.7 mg/dL (<0.1-0.3); SALICYLATE < 2.8 mg/dL (2.8-20.0)
--- NOTE | 2019-10-30 00:45 | NUR ---
MESSAGE SENT TO DR KNIGHT THROUGH YOU [employer] REGARDING ELEVATED DDIMER. MARILY RAMOS SPOKE TO DR KNIGHT 0045 AND HE STATES TO WATCH PT, NO NEW ORDERS AT THIS TIME.
[2019-10-30 03:15] VITALS: BP 129/49
[2019-10-30 04:05] LABS: HEMATOCRIT 33.6 % (37.0-47.0); HEMOGLOBIN 11.5 gm/dL (12.0-15.0); MCH 33.7 pg (26.0-34.0); MCHC 34.2 g/dL (28.0-37.0); MCV 98.7 fL (80.0-100.0); MPV 9.8 fl. (7.2-11.1); RBC 3.41 mil/uL (4.20-5.00); RDW-CV 14.5 % (10.5-14.5); WBC 11.6 thou/uL (4.0-11.0)
[2019-10-30 04:41] LABS: ALBUMIN 2.4 g/dL (3.4-5.0); CALCIUM 7.9 mg/dL (8.5-10.1); CREATININE 2.7 mg/dL (0.6-1.3); POTASSIUM 4.1 mmol/L (3.5-5.1); TOTAL PROTEIN 6.3 g/dL (6.4-8.2)
--- NOTE | 2019-10-30 06:18 | NUR ---
PT SLEPT FAIRLY WELL OVERNIGHT. UP WITH SBA TO BSC TO VOID. HAS BEEN NPO SINCE MIDNIGHT FOR ABD CT TODAY. HS ACCUCHECK, INSULIN GIVEN WITH SNACK ORDERED. RAC SL IV. LABS DRAWN, DR NOTIFIED OF ELEVATED DDIMER. PT CANNOT TOLERATE BP CUFF ON UPPER ARMS, MORE ACCURATE READING OBTAINED ON RLE. [facility] IN PT BOX FOR USE. TEMP MAX 99.6 OVERNIGHT. ABLE TO USE CALL LITE AND MAKE NEEDS KNOWN.
[2019-10-30 08:17] VITALS: BP 111/40
--- NOTE | 2019-10-30 12:39 | 2DMMODE ---
[place] [address] 2 D/M-MODE ECHOCARDIOGRAM Name: DIONNA LEDESMA Room: [address] ADM IN .R.#: [id number] Admission: 10/29/19 Attend Phys: Ron Crowe Discharge: Date of : 44 Date of Service: 10/30/19 1238 Report #: [id number] THIS REPORT FOR: cc: Jose Curtis MD, Bruce D. MD Liston, Michael J. MD [facility] ~ THIS REPORT FOR: //name// APPROVED REPORT Study performed: 10/30/2019 09:03:35 EXAM: Comprehensive 2D, Doppler, and color-flow Echocardiogram Patient Location: In-Patient Room #: [facility] BSA: 1.87 HR: 73 bpm BP: 129/49 mmHg Other Information Study Quality: Good Indications Dyspnea 2D Dimensions IVSd: 9.90 (7-11mm) LVOT Diam: 20.30 (18-24mm) LVDd: 46.52 mm PWd: 10.01 (7-11mm) Ascending Ao: 29.15 (22-36mm) LVDs: 29.55 (25-40mm) Aortic Root: 23.45 mm Volumes Left Atrial Volume (Systole) LA ESV Index: 13.10 mL/m2 Aortic Valve AoV Peak Catalino.: 1.63 m/s AO Peak Gr.: 10.62 mmHg LVOT Max P.58 mmHg AO Mean Gr.: 5.93 mmHg LVOT Mean P.91 mmHg LVOT Max V: 1.28 m/s AO V2 VTI: 31.66 cm LVOT Mean V: 0.78 m/s DAISHA (VTI): 2.69 cm2 LVOT V1 VTI: 26.30 [place] [address] 2 D/M-MODE ECHOCARDIOGRAM Name: CALLIEDIONNA CUMMINGS Room: [address] ADM IN .R.#: [id number] Admission: 10/29/19 Attend Phys: Ron Crowe Discharge: Date of : 44 Date of Service: 10/30/19 1238 Report #: [id number] Mitral Valve E/A Ratio: 0.89 MV Decel. Time: 176.12 ms MV E Max Catalino.: 0.75 m/s MV PHT: 51.07 ms MVA (PHT): 4.31 cm2 TDI E/Lateral E': 6.25 E/Medial E': 6.82 Medial E' Catalino.: 0.11 m/s Lateral E' Catalino.: 0.12 m/s Pulmonary Valve PV Peak Catalino.: 1.08 m/s PV Peak Gr.: 4.70 mmHg Tricuspid Valve RAP Estimate: 5.00 mmHg TR Peak Gr.: 32.16 mmHg RVSP: 37.16 mmHg PA Pressure: 37.16 mmHg Left Ventricle The left ventricle is normal size. There is normal LV segmental wall motion. There is normal left ventricular wall thickness. Left ventricular systolic function is normal. LVEF is 60-65%. Grade I - abnormal relaxation pattern. Right Ventricle The right ventricle is normal size. The right ventricular systolic function is normal. Atria The left atrium size is normal. The right atrium size is normal. Aortic Valve The aortic valve is normal in structure. No aortic regurgitation is present. There is no aortic valvular stenosis. Mitral Valve The mitral valve is normal in structure. Mild mitral regurgitation. No evidence of mitral valve stenosis. Tricuspid Valve The tricuspid valve is normal in structure. Mild tricuspid regurgitation. The RVSP is 40-[place] [address] 2 D/M-MODE ECHOCARDIOGRAM Name: DIONNA LEDESMA Room: [address] IN [facility]#: [id number] Admission: 10/29/19 Attend Phys: Ron Crowe Discharge: Date of : 44 Date of Service: 10/30/19 1238 Report #: [id number] Pulmonic Valve The pulmonary valve is normal in structure. Trace pulmonic regurgitation. Great Vessels The aortic root is normal in size. IVC is normal in size and collapses >50% with inspiration. Pericardium There is no pericardial effusion. <Conclusion> The left ventricle is normal size. There is normal left ventricular wall thickness. Left ventricular systolic function is normal. LVEF is 60-65%. Grade I - abnormal relaxation pattern. Mild mitral regurgitation. Mild tricuspid regurgitation. The RVSP is 40-45 mmHg. <ELECTRONICALLY SIGNED> By: Miguelito De La Paz MD, FACC 10/30/19 1238 1238 1238 Miguelito De La Paz MD, FACC /INF
[2019-10-30 15:33] LABS: APTT 36.6 Seconds (25.0-31.3); INR 1.1; PROTIME 11.3 Seconds (9.20-11.50)
--- NOTE | 2019-10-30 16:46 | NUR ---
SW met with pt to complete initial assessment, introduce self, and SW role. Pt lives at home with family. Pt continues to use electric wc, does not ambulate but a few feet at home whenever she needs to get into the bathroom. SW discussed possible HH needs at dc but pt has preference of OP if therapy needed. Pt current with [facility]. SW to continue to follow to assist with safe dc planning.
[2019-10-30 18:08] VITALS: BP 123/58
--- NOTE | 2019-10-30 18:49 | NUR ---
PATIENT AWAKE IN BED. PATIENT AMBULATED TO BEDSIDE COMMODE AND CHAIR WITH ASSITANCE THROUGHOUT SHIFT. ALL SAFETY MEASURES MAINTAINED. PATIENT DENIES FURTHER NEEDS AT THIS TIME.
[2019-10-30 20:00] VITALS: BP 125/50
[2019-10-31 04:23] LABS: HEMATOCRIT 30.1 % (37.0-47.0); HEMOGLOBIN 10.3 gm/dL (12.0-15.0); MCH 33.8 pg (26.0-34.0); MCHC 34.3 g/dL (28.0-37.0); MCV 98.6 fL (80.0-100.0); MPV 10.1 fl. (7.2-11.1); RBC 3.05 mil/uL (4.20-5.00); RDW-CV 14.7 % (10.5-14.5); WBC 6.6 thou/uL (4.0-11.0)
[2019-10-31 04:56] LABS: ALBUMIN 2.1 g/dL (3.4-5.0); CALCIUM 7.8 mg/dL (8.5-10.1); CREATININE 2.8 mg/dL (0.6-1.3); TOTAL BILIRUBIN 0.4 mg/dL (<0.1-1.0); TOTAL PROTEIN 5.8 g/dL (6.4-8.2)
--- NOTE | 2019-10-31 06:34 | NUR ---
PT ALERT AND ORIENTED. VSS ON RA. ASSESSMENT DOCUMENTED. BP TAKEN ON LT ANKLE. MEDS GIVEN PER EMAR. PT SLEPT WELL THIS SHIFT. FALL PRECAUTION IN PLACE. CALL LIGHT WITHIN REACH. HOURLY ROUNDINGS MADE. WILL CONTINUE TO MONITOR.
[2019-10-31 07:45] VITALS: BP 105/48
[2019-10-31] MEDS ORDERED: LEVAQUIN 750 M750 MG PO (12:43)
[2019-10-31 13:05] VITALS: BP 132/53
[2019-10-31 15:09] VITALS: BP 132/53
[2019-10-31 16:21] VITALS: BP 132/53
--- NOTE | 2019-10-31 16:22 | NUR ---
6835 PATIENT ALERT AND ORIENTED X4. PATIENT AMBULATING WITH ASSISTANCE TO BEDSIDE COMMODE AND CHAIR THROUGHOUT SHIFT. ALL SAFETY MEASURES MAINTAINED. PATIENT DECLINED INTERVENTION FOR CONSTIPATION. REPORTS SHE FEELS GREAT. DISCHARGE PAPERWORK GIVEN TO PATIENT AND REVIEWED. PATIENT AND SPOUSE DENY QUESTIONS AND FURTHER NEEDS.
== END 2019-10-31 15:55 | disposition home or self-care (01) | DRG 871 ==
LOC: M.ERS 10:23 → M.3W 11:51 → M.TBA-ER 11:51 → M.3W 13:03
PROVIDERS: Emergency Medicine Emergency Medical Services; ADMIT Internal Medicine
DX: A41.50 Gram-negative sepsis, unspecified (principal); G93.41 Metabolic encephalopathy; N17.9 Acute kidney failure, unspecified; N39.0 Urinary tract infection, site not specified; E87.1 Hypo-osmolality and hyponatremia; N18.4 Chronic kidney disease, stage 4 (severe); I50.30 Unspecified diastolic (congestive) heart failure; I13.0 Hypertensive heart and chronic kidney disease with heart failure and stage 1 through stage 4 chronic kidney disease, or unspecified chronic kidney disease; E87.3 Alkalosis; M19.90 Unspecified osteoarthritis, unspecified site; N20.0 Calculus of kidney; E87.6 Hypokalemia; D69.6 Thrombocytopenia, unspecified; M79.7 Fibromyalgia; E11.22 Type 2 diabetes mellitus with diabetic chronic kidney disease; E80.6 Other disorders of bilirubin metabolism; D64.9 Anemia, unspecified; E03.9 Hypothyroidism, unspecified; E11.65 Type 2 diabetes mellitus with hyperglycemia; I25.10 Atherosclerotic heart disease of native coronary artery without angina pectoris; K21.9 Gastro-esophageal reflux disease without esophagitis; M10.9 Gout, unspecified; Z96.1 Presence of intraocular lens; E11.40 Type 2 diabetes mellitus with diabetic neuropathy, unspecified; Z90.710 Acquired absence of both cervix and uterus; Z86.718 Personal history of other venous thrombosis and embolism; Z90.49 Acquired absence of other specified parts of digestive tract; Z98.1 Arthrodesis status; Z79.899 Other long term (current) drug therapy; Z79.4 Long term (current) use of insulin; I25.2 Old myocardial infarction; Z88.1 Allergy status to other antibiotic agents; Z88.5 Allergy status to narcotic agent; Z88.0 Allergy status to penicillin; Z88.8 Allergy status to other drugs, medicaments and biological substances; Z95.5 Presence of coronary angioplasty implant and graft; Z82.49 Family history of ischemic heart disease and other diseases of the circulatory system; Z83.3 Family history of diabetes mellitus

== ENCOUNTER 2020-01-03 08:05 | Emergency (ER) | payer MEDICARE ==
[~2020-01-03] VITALS: Ht 152.4 cm; Wt 90.3 kg
[~2020-01-03 08:05] MED LIST changes: +FUROSEMIDE 40 M40 MG PO; +HUMALOG100 UNIT/1 SUBQ; +ISOSORBIDE PO; +LEVAQUIN 750 M750 MG PO; +LEVEMIR100 UNIT/1 SUBQ; +VITAMIN D400 UNIT PO
[2020-01-03] MEDS ORDERED: MACROBID 100 M100 MG PO (08:19)
[2020-01-03 09:12] LABS: HEMATOCRIT 35.4 % (37.0-47.0); MCH 33.2 pg (26.0-34.0); MCV 97.8 fL (80.0-100.0); MPV 8.4 fl. (7.2-11.1); NUCLEATED RBCS 0 /100WBC; PLATELET COUNT* 134 thou/uL (150-400); RBC 3.62 mil/uL (4.20-5.00); RDW-CV 14.6 % (10.5-14.5); WBC 13.1 thou/uL (4.0-11.0)
[2020-01-03 09:22] LABS: CALCIUM 8.1 mg/dL (8.5-10.1); CREATININE 1.8 mg/dL (0.6-1.3); POTASSIUM 3.6 mmol/L (3.5-5.1); PROTIME 10.6 Seconds (9.20-11.50)
[2020-01-03 09:23] LABS: URINE BLOOD NEGATIVE (Negative); URINE CLARITY CLEAR; URINE COLOR YELLOW; URINE GLUCOSE-RANDOM NEGATIVE (Negative); URINE KETONES NEGATIVE (Negative); URINE LEUKOCYTES-REFLEX NEGATIVE (Negative); URINE NITRITE-REFLEX NEGATIVE (Negative); URINE PROTEIN NEGATIVE (Negative); URINE UROBILINOGEN 0.2 E.U./dl (0.2-1.0)
[2020-01-03 09:25] LABS: URINE BILIRUBIN 1+ (Negative)
[2020-01-03 09:26] LABS: ICTOTEST (BILI CONFIRMATORY) Negative (Negative)
[2020-01-03 09:33] LABS: ALBUMIN 2.7 g/dL (3.4-5.0); TOTAL BILIRUBIN 0.9 mg/dL (<0.1-1.0); TOTAL PROTEIN 6.8 g/dL (6.4-8.2)
[2020-01-03 09:39] LABS: INFLUENZA A ANTIGEN Negative (Negative)
[2020-01-03 09:45] LABS: ABSOLUTE EOSINOPHILS 0.3 thou/uL (0.0-0.7); ABSOLUTE LYMPHOCYTES 0.7 thou/uL (0.8-5.3); ABSOLUTE MONOCYTES 0.1 thou/uL (0.0-1.2); ABSOLUTE NEUTROPHILS 12.1 thou/uL (1.6-8.1); PLATELET ESTIMATE DECREASED
[2020-01-03 09:48] LABS: ANISOCYTOSIS Occasional; HYPOCHROMASIA Occasional
[2020-01-03] MEDS ORDERED: TAMIFLU75 MG PO (09:59)
[2020-01-03 10:23] VITALS: BP 149/66
--- NOTE | 2020-01-05 10:10 | EKG ---
[place] [address] ELECTROCARDIOGRAM REPORT Name: DIONNA LEDESMA Room: [facility]#: [id number] Admission: 01/03/20 Attend Phys: Discharge: 01/03/20 Date of : 44 Date of Service: 01/03/20 0938 Report #: [id number] THIS REPORT FOR: //name// [facility] ED Test Date: 2020-01-03 Test Time: 09:38:55 Pat Name: DIONNA LEDESMA Department: Room: Gender: F Day Trader: LAW[place] : 1940 Requested By: Emil Turcios Order Number: [id number] MD: Harry Jacobs Measurements Intervals [place] Rate: 69 P: 16 [place]: 167 QRS: -51 QRSD: 159 T: 2 QT: 441 QTc: 473 Interpretive Statements Sinus rhythm RBBB and LAFB Compared to ECG 10/29/2019 10:35:19 Sinus tachycardia no longer present Electronically Signed On 01-05-2020 10:09:08 CDT by Harry Jacobs [email or web address] <ELECTRONICALLY SIGNED> By: Harry Jacobs MD, [facility] 01/05/20 1009 0938 0938 Harry Jacobs MD, [facility] /EPI
== END 2020-01-03 10:24 | disposition home or self-care (01) ==
LOC: M.ERS 08:05
PROVIDERS: Family Medicine
DX: J10.1 Influenza due to other identified influenza virus with other respiratory manifestations (principal); I10 Essential (primary) hypertension; I25.10 Atherosclerotic heart disease of native coronary artery without angina pectoris; E11.40 Type 2 diabetes mellitus with diabetic neuropathy, unspecified; E03.9 Hypothyroidism, unspecified; K21.9 Gastro-esophageal reflux disease without esophagitis; M19.90 Unspecified osteoarthritis, unspecified site; Z87.442 Personal history of urinary calculi; Z86.718 Personal history of other venous thrombosis and embolism; Z90.710 Acquired absence of both cervix and uterus; Z90.49 Acquired absence of other specified parts of digestive tract; Z79.4 Long term (current) use of insulin; Z88.0 Allergy status to penicillin; Z88.1 Allergy status to other antibiotic agents; Z88.6 Allergy status to analgesic agent; Z88.8 Allergy status to other drugs, medicaments and biological substances

== ENCOUNTER → 2021-07-15 | Outpatient (CLI) | payer BC ==
[~2021-07-15] MED LIST changes: +MACROBID 100 M100 MG PO; +TAMIFLU75 MG PO
== END ==
LOC: M.RAD 13:08
PROVIDERS: ATTEND Internal Medicine
DX: I25.10 Atherosclerotic heart disease of native coronary artery without angina pectoris (principal); I10 Essential (primary) hypertension; I25.2 Old myocardial infarction; Z98.61 Coronary angioplasty status